=== PATIENT | male | born 1950 | race Caucasian/White ===

== ENCOUNTER 2022-02-21 08:33 | Outpatient (REF) | payer MEDICARE, SELFPAY ==
--- NOTE | 2022-02-21 13:03 | MHC.AU.ANR ---
Adult Audiological Evaluation Date of Visit: 02/21/22 Reason for Appointment: Audiological evaluation due to concern for decreased hearing. Mr. Willams reports that he often asks for repetition and his notes he doesn't hear well. Does patient feel they have a hearing loss?: Yes If Yes, Which Ear?: Both Ears When Was Hearing Difficulty First Noticed?: ~1 year ago Has hearing been tested previously?: No Hearing Handicap Inventory: HHIE SCORE: 12 Based on HHIE score, patient has: Mild to moderate perceived hearing handicap Medical History: Medical History: High Blood Pressure, Measles, Mumps Medication List: Amlodipin, losartan, bupropion, venlafaxine, super B complex, D3 5000 IU, E 400 FU, Fish oil Otoscopy: Right Ear: Unremarkable Left Ear: Unremarkable Tympanometry: Tympanometry performed due to: To assess integrity of the middle ear system Right Ear: Hypercompliant Middle Ear System (Type Ad) Left Ear: Normal Middle Ear System (Type A) Hearing Evaluation: Transducer(s) Used: Insert Earphones, Bone Conduction Method: Conventional Audiometry Stimuli Used: Pure Tones Right Ear: Description of Hearing: Normal hearing from 250-2000 Hz, sloping to a mild to moderate sensorineural hearing loss from 2172-2033 Hz. Left Ear: Description of Hearing: Mild hearing loss at 250 Hz, rising to normal hearing 500-1000 Hz, and sloping to a mild sensorineural hearing loss 5453-5293 Hz. Speech Recognition Threshold (SRT): Method Used: Monitored Live Voice Stimuli Used: Spondee Words Right Ear: 15 dBHL Left Ear: 20 dBHL Word Discrimination: Method: Recorded Lists Word Lists Used: NU-6 Right Ear: 100% at 55 dBHL Left Ear: 96% at 60 dBHL Recommendations: Audiological re-evaluation in one year. Amplification is not warranted at this time. Discussed results of today's audiological evaluation. Mr. Willams is considered a borderline candidate for amplification and deferred hearing aids at this time. Diagnosis: Primary Diagnosis: H90.3 Bilateral Sensorineural Hearing Loss Services Performed: Services Performed: Comprehensive Audiological Evaluation (CPT 23246) Tympanometry (CPT 94864) Signature: Provider: Kishore Dee, CCC-A
== END 2022-02-21 08:34 | disposition home or self-care (01) ==
LOC: HO.SH 08:33
PROVIDERS: Visit Provider Family Medicine
DX: H90.3 Sensorineural hearing loss, bilateral (principal)
CPT/HCPCS: 92557; 92567